=== PATIENT | female | born 2000 | race Caucasian/White ===

== ENCOUNTER 2023-09-14 17:19 | Outpatient (CLI) | payer OTHER ==
[~2023-09-14] VITALS: Ht 160 cm; Wt 113.4 kg
[2023-09-14 19:15] LABS: HEMATOCRIT 33.6 % (36.0-45.00); HEMOGLOBIN 11.1 g/dL (12.0-15.00); MEAN CORPUSCULAR HEMOGLOBIN 26.7 pg (27.00-32.0); MEAN CORPUSCULAR HGB CONC 32.9 g/dl (32.0-36.0); PLATELET COUNT 339 K/uL (150-450); RED BLOOD COUNT 4.15 M/uL (4.00-6.00); RED CELL DISTRIBUTION WIDTH 16.3 % (11.5-14.5)
[2023-09-14 19:16] LABS: URINE APPEARANCE Cloudy; URINE BILIRRUBIN Negative (NEGATIVE); URINE BLOOD Negative; URINE COLOR Yellow; URINE GLUCOSE Negative (NEGATIVE); URINE LEUKOCYTE Negative; URINE NITRATE Negative; URINE PROTEIN Negative (NEGATIVE)
[2023-09-14 19:20] LABS: URINE EPITHELIAL CELLS 125.6 uL (0.0-38.8); URINE RBC 5.4 uL (0.0-20.8); URINE WBC 13.2 uL (0.0-23.2)
== END 2023-09-15 09:32 | disposition left against medical advice (07) ==
LOC: OBS/DEL 17:19
PROVIDERS: ATTEND Specialist
DX: O26.893 Other specified pregnancy related conditions, third trimester (principal); R10.2 Pelvic and perineal pain; Z3A.32 32 weeks gestation of pregnancy

== ENCOUNTER 2023-09-30 16:47 | Outpatient (CLI) | payer OTHER ==
[~2023-09-30] VITALS: Ht 160 cm; Wt 114.3 kg
[2023-09-30 19:32] LABS: URINE APPEARANCE Cloudy; URINE BILIRRUBIN Negative (NEGATIVE); URINE BLOOD Negative; URINE COLOR Yellow; URINE GLUCOSE Negative (NEGATIVE); URINE LEUKOCYTE Negative; URINE NITRATE Negative; URINE PROTEIN Negative (NEGATIVE); URINE UROBILINOGEN 0.2 E.U./dl
[2023-09-30 19:36] LABS: URINE EPITHELIAL CELLS 140.6 uL (0.0-38.8); URINE RBC 15.5 uL (0.0-20.8); URINE WBC 28.2 uL (0.0-23.2)
[2023-09-30 19:47] LABS: URINE CRYSTALS FEW /HPF; URINE MUCUS SCANT
[2023-09-30 20:34] LABS: HEMATOCRIT 35.2 % (36.0-45.00); HEMOGLOBIN 11.6 g/dL (12.0-15.00); MEAN CORPUSCULAR HEMOGLOBIN 26.5 pg (27.00-32.0); MEAN CORPUSCULAR HGB CONC 33.1 g/dl (32.0-36.0); PLATELET COUNT 367 K/uL (150-450); RED CELL DISTRIBUTION WIDTH 16.7 % (11.5-14.5)
== END 2023-09-30 21:39 | disposition home or self-care (01) ==
LOC: OBS/DEL 16:47
PROVIDERS: ATTEND Specialist
DX: O36.8330 Maternal care for abnormalities of the fetal heart rate or rhythm, third trimester, not applicable or unspecified (principal); Z3A.34 34 weeks gestation of pregnancy

== ENCOUNTER 2023-10-29 05:52 | Inpatient (IN) | payer OTHER ==
[~2023-10-29] VITALS: Ht 160 cm; Wt 115.2 kg
[2023-10-29] MEDS ORDERED: PRENA1 TRUE CO1 EACH PO (06:53)
[2023-10-29] MEDS ORDERED: IRON236 MG (06:53)
[2023-10-29 07:09] LABS: URINE APPEARANCE Clear; URINE BILIRRUBIN Negative (NEGATIVE); URINE BLOOD Negative; URINE COLOR Yellow; URINE GLUCOSE Negative (NEGATIVE); URINE LEUKOCYTE Negative; URINE NITRATE Negative; URINE PROTEIN Negative (NEGATIVE); URINE UROBILINOGEN 0.2 E.U./dl
[2023-10-29 07:12] LABS: HEMATOCRIT 34.2 % (36.0-45.00); HEMOGLOBIN 11.4 g/dL (12.0-15.00); MEAN CELL VOLUME 79.5 fL (80.00-100.00); MEAN CORPUSCULAR HEMOGLOBIN 26.5 pg (27.00-32.0); MEAN CORPUSCULAR HGB CONC 33.3 g/dl (32.0-36.0); PLATELET COUNT 295 K/uL (150-450); RED CELL DISTRIBUTION WIDTH 17.6 % (11.5-14.5)
[2023-10-29 07:41] LABS: URINE BACTERIA 152.4 uL (0.0-1933); URINE EPITHELIAL CELLS 7.1 uL (0.0-38.8); URINE WBC 7.4 uL (0.0-23.2)
[2023-10-29 07:42] LABS: INR 0.97; PARTIAL THROMBOPLASTIN TIME 27.3 SECONDS (22.0-34.0); PROTHROMBIN TIME 10.2 SECONDS (9.0-11.5)
[2023-10-29 07:51] LABS: URINE RBC 1.1 uL (0.0-20.8)
[2023-10-29 08:05] LABS: POTASSIUM 4.19 mEq/L (3.5-5.1)
[2023-10-29 08:14] LABS: ALBUMIN 2.7 gm/dL (3.4-5.0); BILIRUBIN TOTAL 0.29 mg/dL (0.3-1.2); CREATININE SERUM 0.63 mg/dL (0.55-1.02); GFR 119.29; GLOBULINA 3.6 G/DL (2.4-3.5); TOTAL PROTEIN 6.3 gm/dL (6.4-8.2)
[2023-10-29 23:31] LABS: ABG PH 7.214 (7.35-7.45); ABG pCO2 53.5 mmHg (35-45)
[2023-10-29 23:36] LABS: ABG PO2 12.3 mmHg (80-100); BASE EXCESS -7.4 mmol/l; SaO2 9.4 %
[2023-10-29 23:37] LABS: BICARBONATE 21.1 mmol/l (23-25); Tco2 22.7 mmol/l
[2023-10-29 23:38] LABS: o2 21 %
[2023-10-30 07:59] LABS: HEMATOCRIT 32.1 % (36.0-45.00); HEMOGLOBIN 10.8 g/dL (12.0-15.00); MEAN CELL VOLUME 80.9 fL (80.00-100.00); MEAN CORPUSCULAR HEMOGLOBIN 27.3 pg (27.00-32.0); MEAN CORPUSCULAR HGB CONC 33.7 g/dl (32.0-36.0); PLATELET COUNT 272 K/uL (150-450); RED BLOOD COUNT 3.96 M/uL (4.00-6.00); RED CELL DISTRIBUTION WIDTH 17.5 % (11.5-14.5)
== END 2023-10-31 14:43 | disposition home or self-care (01) | DRG 788 ==
LOC: LDR 05:52 → OB/GYN 05:52 → LDR 18:29 → O/R 21:52 → OB/GYN 23:40
PROVIDERS: ADMIT Specialist; ATTEND Specialist
PROC: 3E033VJ Introduction of Other Hormone into Peripheral Vein, Percutaneous Approach (ICD-10-PCS; 2023-10-29)
PROC: 3E0P7VZ Introduction of Hormone into Female Reproductive, Via Natural or Artificial Opening (ICD-10-PCS; 2023-10-29)
PROC: 4A1HXCZ Monitoring of Products of Conception, Cardiac Rate, External Approach (ICD-10-PCS; 2023-10-29)
PROC: 10D00Z1 Extraction of Products of Conception, Low, Open Approach (ICD-10-PCS; principal; 2023-10-29 23:45)
DX: O13.4 Gestational [pregnancy-induced] hypertension without significant proteinuria, complicating childbirth (principal); O99.214 Obesity complicating childbirth; E66.9 Obesity, unspecified; Z3A.38 38 weeks gestation of pregnancy; Z37.0 Single live birth; Z20.822 Contact with and (suspected) exposure to COVID-19

== ENCOUNTER 2024-09-11 11:19 | Emergency (ER) | payer OTHER ==
[~2024-09-11] VITALS: Ht 160 cm; Wt 110.2 kg
[~2024-09-11 11:19] MED LIST: IRON236 MG; PRENA1 TRUE CO1 EACH PO
[2024-09-11] MEDS ORDERED: 0.9 % SODIUM CHLORIDE 1,000 ML IV STA (12:04)
[2024-09-11] MEDS ORDERED: ONDANSETRON HCL 2 MG/ML VIAL IV ONE (12:15)
[2024-09-11 12:47] LABS: HEMATOCRIT 36.3 % (36.0-45.00); MEAN CELL VOLUME 75.2 fL (80.00-100.00); MEAN CORPUSCULAR HEMOGLOBIN 24.9 pg (27.00-32.0); MEAN CORPUSCULAR HGB CONC 33.1 g/dl (32.0-36.0); PLATELET COUNT 373 K/uL (150-450); RED BLOOD COUNT 4.83 M/uL (4.00-6.00)
[2024-09-11 13:47] LABS: CALCIUM 9.2 mg/dL (8.5-10.1); CREATININE SERUM 0.55 mg/dL (0.55-1.02); GFR 138.21; POTASSIUM 3.64 mEq/L (3.5-5.1)
[2024-09-11 15:28] LABS: PH,URINE 5.5 (5.0-8.0); URINE APPEARANCE Cloudy; URINE BILIRRUBIN Negative (NEGATIVE); URINE BLOOD Negative; URINE COLOR Yellow; URINE GLUCOSE Negative (NEGATIVE); URINE LEUKOCYTE Trace; URINE NITRATE Negative; URINE PROTEIN 30 (NEGATIVE)
[2024-09-11 15:32] LABS: URINE BACTERIA 1268.7 uL (0.0-1933); URINE EPITHELIAL CELLS 68.6 uL (0.0-38.8); URINE RBC 7.1 uL (0.0-20.8); URINE WBC 39.2 uL (0.0-23.2)
[2024-09-11 15:45] LABS: URINE CAST 0.61 uL (0.0-1.40); URINE CRYSTALS FEW /HPF; URINE KETONE 80 (NEGATIVE)
[2024-09-11 15:46] LABS: URINE MUCUS MODERATE
== END 2024-09-11 16:15 | disposition home or self-care (01) ==
LOC: ER 11:21
PROVIDERS: General Practice
DX: O21.9 Vomiting of pregnancy, unspecified (principal); Z3A.01 Less than 8 weeks gestation of pregnancy; R07.89 Other chest pain

== ENCOUNTER 2025-02-16 13:01 | Emergency (ER) | payer OTHER ==
[~2025-02-16] VITALS: Ht 160 cm; Wt 113.4 kg
[2025-02-16] MEDS ORDERED: 0.9 % SODIUM CHLORIDE 1,000 ML IV STA (13:57)
[2025-02-16 14:26] LABS: HEMATOCRIT 28.5 % (36.0-45.00); MEAN CELL VOLUME 76.3 fL (80.00-100.00); MEAN CORPUSCULAR HGB CONC 32.8 g/dl (32.0-36.0); PLATELET COUNT 288 K/uL (150-450); RED BLOOD COUNT 3.73 M/uL (4.00-6.00)
[2025-02-16 14:36] LABS: HEMOGLOBIN 9.3 g/dL (12.0-15.00); MEAN CORPUSCULAR HEMOGLOBIN 24.9 pg (27.00-32.0)
[2025-02-16 14:53] LABS: CALCIUM 8.7 mg/dL (8.5-10.1); CREATININE SERUM 0.32 mg/dL (0.55-1.02); GFR 255.89; POTASSIUM 3.67 mEq/L (3.5-5.1)
[2025-02-16 15:10] LABS: PH,URINE 5.5 (5.0-8.0); URINE APPEARANCE Clear; URINE BILIRRUBIN Negative (NEGATIVE); URINE BLOOD Negative; URINE COLOR Yellow; URINE GLUCOSE Negative (NEGATIVE); URINE LEUKOCYTE Negative; URINE NITRATE Negative; URINE PROTEIN Negative (NEGATIVE)
[2025-02-16 15:11] LABS: URINE RBC 4.1 uL (0.0-20.8); URINE WBC 44.9 uL (0.0-23.2)
[2025-02-16 15:30] LABS: URINE KETONE 40 (NEGATIVE)
== END 2025-02-16 15:27 | disposition home or self-care (01) ==
LOC: ER 13:02
PROVIDERS: Emergency Medicine
DX: O99.612 Diseases of the digestive system complicating pregnancy, second trimester (principal); Z3A.27 27 weeks gestation of pregnancy; K52.89 Other specified noninfective gastroenteritis and colitis
CPT/HCPCS: 36415; 96365; 96366; 99282; J7030

== ENCOUNTER 2025-04-28 16:11 | Outpatient (CLI) | payer OTHER ==
[2025-04-28 16:33] VITALS: BP 110/76
[2025-04-28 17:20] LABS: BASO % 0.3 % (0.1-1.2); EOS # 0.06 (0.04-0.54); EOS % 0.6 % (0.7-7.0); HEMATOCRIT 31.3 % (34.1-44.9); LYMPH # 1.85 (1.18-3.74); MONO # 0.59 (0.24-0.82); MONO % 6.4 % (4.7-12.5); NEUT # 6.69 (1.56-6.13); NEUT % 72.4 % (34.0-71.1); PLATELET COUNT 301 K/uL (163-369); RED BLOOD COUNT 4.17 M/uL (3.93-5.22); RED CELL DISTRIBUTION WIDTH 17.2 % (11.6-14.4)
[2025-04-28 17:21] LABS: URINE APPEARANCE Cloudy; URINE BILIRRUBIN Negative (NEGATIVE); URINE BLOOD Negative; URINE COLOR Dark Yellow; URINE GLUCOSE Negative (NEGATIVE); URINE KETONE Trace (NEGATIVE); URINE LEUKOCYTE Trace; URINE NITRATE Negative; URINE PROTEIN Trace (NEGATIVE)
[2025-04-28 17:26] LABS: URINE BACTERIA 3613.1 uL (0.0-1933); URINE RBC 14.8 uL (0.0-20.8); URINE WBC 88.1 uL (0.0-23.2)
[2025-04-28 17:28] LABS: URINE CAST 0.44 uL (0.0-1.40)
[2025-04-28 17:41] LABS: URINE MUCUS MODERATE
[2025-04-28 17:42] LABS: TYPE CELLS SQUAMOUS
[2025-04-28 17:47] LABS: ALBUMIN 2.4 gm/dL (3.4-5.0); BILIRUBIN TOTAL 0.32 mg/dL (0.3-1.2); CALCIUM 8.6 mg/dL (8.5-10.1); CREATININE SERUM 0.34 mg/dL (0.55-1.02); GFR 238.6; GLOBULINA 3.3 G/DL (2.4-3.5); POTASSIUM 4.19 mEq/L (3.5-5.1); TOTAL PROTEIN 5.7 gm/dL (6.4-8.2)
[2025-04-28 17:48] LABS: PARTIAL THROMBOPLASTIN TIME 26.5 SECONDS (22.0-34.0); PROTHROMBIN TIME 10.9 SECONDS (9.0-11.5)
[2025-04-28] MEDS ORDERED: CEFAZOLIN SODIUM 1,000 MG VIAL IV ONE (18:45)
[2025-04-28 20:02] VITALS: BP 97/60
[2025-04-28 23:25] VITALS: BP 112/69
[2025-04-29 04:19] VITALS: BP 98/63
[2025-04-29 07:15] VITALS: BP 103/63
[2025-04-29 11:34] VITALS: BP 115/75
[2025-04-29 15:05] VITALS: BP 110/71
[2025-04-29 18:25] LABS: URINE PROT QUANT 24HR 7.6 MG/DL
[2025-04-29 18:26] LABS: URINE PROT QUANT 24 HR 205.2 MG/24HR (42-225)
[2025-04-29 18:27] LABS: CREATININE SERUM 0.45 mg/dL (0.6-1.0)
[2025-04-29 18:46] VITALS: BP 110/71
== END 2025-04-29 18:46 | disposition home or self-care (01) ==
LOC: OBS/DEL 16:11
PROVIDERS: ATTEND Specialist
DX: O13.3 Gestational [pregnancy-induced] hypertension without significant proteinuria, third trimester (principal); Z3A.37 37 weeks gestation of pregnancy

== ENCOUNTER 2025-05-03 16:51 | Inpatient (IN) | payer OTHER ==
[~2025-05-03] VITALS: Ht 160 cm; Wt 118.4 kg
[2025-05-03 15:58] VITALS: BP 123/82
[2025-05-03] MEDS ORDERED: RINGERS SOLUTION,LACTATED 1,000 ML IV SCH (17:30)
[2025-05-03 18:10] LABS: BASO % 0.2 % (0.1-1.2); EOS % 1.1 % (0.7-7.0); HEMATOCRIT 30.1 % (34.1-44.9); HEMOGLOBIN 9.9 g/dL (11.2-15.7); LYMPH # 1.59 (1.18-3.74); LYMPH % 18.2 % (19.3-53.1); MEAN CORPUSCULAR HEMOGLOBIN 24.9 pg (25.6-32.2); MONO # 0.59 (0.24-0.82); MONO % 6.8 % (4.7-12.5); NEUT % 73.2 % (34.0-71.1); PLATELET COUNT 275 K/uL (163-369); RED BLOOD COUNT 3.97 M/uL (3.93-5.22); RED CELL DISTRIBUTION WIDTH 17.1 % (11.6-14.4); URINE APPEARANCE Cloudy; URINE BILIRRUBIN Negative (NEGATIVE); URINE BLOOD Negative; URINE COLOR Dark Yellow; URINE EPITHELIAL CELLS 126.6 uL (0.0-38.8); URINE GLUCOSE Negative (NEGATIVE); URINE KETONE Negative (NEGATIVE); URINE LEUKOCYTE Negative; URINE NITRATE Negative; URINE PROTEIN Trace (NEGATIVE); URINE RBC 5.8 uL (0.0-20.8); URINE WBC 52.4 uL (0.0-23.2)
[2025-05-03 18:11] LABS: URINE CAST 0.44 uL (0.0-1.40)
[2025-05-03 18:34] LABS: INR 0.98; PARTIAL THROMBOPLASTIN TIME 26.8 SECONDS (22.0-34.0); PROTHROMBIN TIME 10.7 SECONDS (9.0-11.5)
[2025-05-03 18:38] LABS: ALBUMIN 2.4 gm/dL (3.4-5.0); BILIRUBIN TOTAL 0.34 mg/dL (0.3-1.2); CALCIUM 8.6 mg/dL (8.5-10.1); CREATININE SERUM 0.46 mg/dL (0.55-1.02); GFR 168.34; GLOBULINA 3.3 G/DL (2.4-3.5); POTASSIUM 4.19 mEq/L (3.5-5.1); TOTAL PROTEIN 5.7 gm/dL (6.4-8.2)
[2025-05-03 19:20] VITALS: BP 123/82; BP 128/86
[2025-05-03] MEDS ORDERED: MORPHINE SULFATE 4 MG/ML CARTRIDGE IV ONE (19:45)
[2025-05-03] MEDS ORDERED: ZOFRAN8 MG PO (20:29)
[2025-05-03] MEDS ORDERED: CEFAZOLIN SODIUM 1,000 MG VIAL ONE (21:04)
[2025-05-03] MEDS ORDERED: ERYTHROMYCIN BASE OPHT 1GM EACH TUBE OP ONE (21:22)
[2025-05-03] MEDS ORDERED: OXYTOCIN 10 UNITS/ML VIAL ONE (21:22)
[2025-05-03] MEDS ORDERED: VAZALORE81 MG (21:37)
[2025-05-03] MEDS ORDERED: CEFAZOLIN SODIUM 1,000 MG VIAL IV SCH (21:45)
[2025-05-03] MEDS ORDERED: MORPHINE SULFATE 4 MG/ML VIAL IV ONE (23:45)
[2025-05-04] MEDS ORDERED: MORPHINE SULFATE 4 MG/ML VIAL IV ONE (00:15)
[2025-05-04] MEDS ORDERED: LABETALOL HCL 100 MG/20 ML ML ONE (01:40)
[2025-05-04 05:35] VITALS: BP 130/77
[2025-05-04 06:12] LABS: BASO % 0.2 % (0.1-1.2); EOS # 0.01 (0.04-0.54); EOS % 0.1 % (0.7-7.0); HEMATOCRIT 32.8 % (34.1-44.9); HEMOGLOBIN 10.5 g/dL (11.2-15.7); LYMPH # 0.75 (1.18-3.74); LYMPH % 6.3 % (19.3-53.1); MEAN CORPUSCULAR HEMOGLOBIN 24.5 pg (25.6-32.2); NEUT # 10.56 (1.56-6.13); PLATELET COUNT 257 K/uL (163-369); RED BLOOD COUNT 4.29 M/uL (3.93-5.22); RED CELL DISTRIBUTION WIDTH 17.1 % (11.6-14.4)
[2025-05-04] MEDS ORDERED: MORPHINE SULFATE 4 MG/ML VIAL IV SCH (07:00)
[2025-05-04] MEDS ORDERED: OxyCODONE HCL 5 MG TABLET (ROXICODONE) PO SCH (08:00)
[2025-05-04] MEDS ORDERED: ACETAMINOPHEN 325 MG TABLET PO SCH (08:00)
[2025-05-04 08:48] VITALS: BP 122/77
[2025-05-04] MEDS ORDERED: DOCUSATE SODIUM 100MG CAP PO SCH (09:00)
[2025-05-04] MEDS ORDERED: SIMETHICONE 125 MG CAPSULE PO SCH (09:00)
[2025-05-04] MEDS ORDERED: ENOXAPARIN SODIUM 40 MG/0.4 ML SYRINGE SUBCUTANEO NR (11:00)
[2025-05-04] MEDS ORDERED: IRON/V.C/V.B12/FOLIC A/VIT. E 1 CAPL CAPLET PO SCH (15:30)
[2025-05-04 16:00] VITALS: BP 140/80
[2025-05-04] MEDS ORDERED: ACETAMINOPHEN WITH CODEINE 1 UDTAB TABLET PO PRN (17:45)
[2025-05-04] MEDS ORDERED: IBUprofen 800 MG TABLET PO PRN (17:45)
[2025-05-05 01:00] VITALS: BP 124/79
[2025-05-05] MEDS ORDERED: IRON/V.C/V.B12/FOLIC A/VIT. E 1 CAPL CAPLET PO SCH (09:00)
[2025-05-05 09:34] VITALS: BP 130/85
[2025-05-05 16:21] VITALS: BP 130/70
[2025-05-06 01:18] VITALS: BP 119/77
[2025-05-06 05:43] VITALS: BP 126/85
[2025-05-06 08:00] VITALS: BP 118/74
== END 2025-05-06 14:18 | disposition home or self-care (01) | DRG 785 ==
LOC: OBS/DEL 16:51 → LDR 20:08 → OB/GYN 20:08 → O/R 21:50 → OB/GYN 23:53
PROVIDERS: ADMIT Specialist; ATTEND Specialist
PROC: 0UB70ZZ Excision of Bilateral Fallopian Tubes, Open Approach (ICD-10-PCS; 2025-05-03)
PROC: 4A1HXCZ Monitoring of Products of Conception, Cardiac Rate, External Approach (ICD-10-PCS; 2025-05-03)
PROC: 10D00Z1 Extraction of Products of Conception, Low, Open Approach (ICD-10-PCS; principal; 2025-05-03 21:00)
DX: O34.211 Maternal care for low transverse scar from previous cesarean delivery (principal); Z3A.38 38 weeks gestation of pregnancy; Z37.0 Single live birth; Z30.2 Encounter for sterilization